=== PATIENT | male | born 1990 | race Caucasian/White ===

== ENCOUNTER → 2016-10-28 | Outpatient (CLI) | payer OTHER ==
--- NOTE | 2016-10-28 12:58 | Diagnostic Imaging Report ---
Indication: Right testicular pain and swelling. Comparison: None. Discussion: Sonographic evaluation of the scrotum was performed. The testicles appear normal and symmetric in echotexture and size bilaterally with normal color and spectral Doppler blood flow. The right testicle measures 4.9 x 2.5 x 3.2 cm. Left testicle measures 4.5 x 2.6 x 3.0 cm. The epididymides appear normal bilaterally. No varicocele or hydrocele. The scrotal wall is unremarkable. Impression: 1. Normal sonographic appearance of the scrotum. Dictated by: Dictated on workstation # [id number]
== END ==
LOC: RAD 10:35
PROVIDERS: ATTEND Internal Medicine
DX: N50.819 Testicular pain, unspecified (principal)
CPT/HCPCS: 76870